=== PATIENT | female | born 1995 | race Caucasian/White ===

== ENCOUNTER 2022-12-16 23:40 | Emergency (ER) | payer OTHER ==
[2022-12-16 23:49] VITALS: BP 117/83; PULSE 100; RESP 17; TEMP 99.3; BMI 28.3
[2022-12-16] MEDS ORDERED: ACETAMINOPHEN 500 MG TABLET (FP) ONE (23:57)
[2022-12-17] MEDS ORDERED: DIPHTH,PERTUSS(ACELL),TET 0.5 ML DISP.SYRIN IM ONE ×2 (00:04)
[2022-12-17] MEDS ORDERED: ACETAMINOPHEN 500 MG TABLET (FP) PO ONE (00:07)
== END 2022-12-17 00:12 | disposition home or self-care (01) ==
LOC: FER 23:40
PROC: 0HQ1XZZ Repair Face Skin, External Approach (ICD-10-PCS; principal; 2022-12-16)
PROC: 3E0234Z Introduction of Serum, Toxoid and Vaccine into Muscle, Percutaneous Approach (ICD-10-PCS; 2022-12-17)
DX: S01.511A Laceration without foreign body of lip, initial encounter (principal); Y04.8XXA Assault by other bodily force, initial encounter
CPT/HCPCS: 12011-25; 90471; 90715; 99282-25

== ENCOUNTER 2024-01-15 21:08 | Emergency (ER) | payer OTHER ==
[2024-01-15 21:13] VITALS: RESP 16; BMI 28.3
[2024-01-15 21:30] VITALS: BP 103/62; PULSE 65; TEMP 98.2
[2024-01-15] MEDS ORDERED: IBUPROFEN 600 MG TABLET (FP) PO ONE (22:18)
[2024-01-15] MEDS: IBUPROFEN 600 MG TABLET (FP) PO ONE (22:19)
== END 2024-01-15 22:21 | disposition home or self-care (01) ==
LOC: FER 21:08
PROC: 0H9AXZZ Drainage of Inguinal Skin, External Approach (ICD-10-PCS; principal; 2024-01-15)
DX: L02.214 Cutaneous abscess of groin (principal)
CPT/HCPCS: 99283-25